=== PATIENT | male | born 1990 | race Caucasian/White ===

== ENCOUNTER 2016-12-01 15:20 | Emergency (ER) | payer OTHER ==
[~2016-12-01] VITALS: Ht 182.9 cm; Wt 106.8 kg
--- NOTE | 2016-12-01 16:35 | REP ---
CT Head without contrast HISTORY: Trauma COMPARISON: None There is no intraparenchymal hemorrhage, acute infarct, mass or midline shift. The ventricular system is normal in appearance. There is no extra cerebral collection. There is no fracture. There is sclerosis of the right mastoid. Mucosal thickening is present in the right middle ear cavity and mastoid air cells. The left mastoid air cells and the visualized sinuses are clear. IMPRESSION: Impression 1. There is no acute intracranial lesion. 2. There is mucosal thickening in the right middle ear cavity and mastoid air cells with associated sclerosis. This is secondary to chronic inflammatory disease. Signed by Michael Sanches MD 12/01/2016 04:27 P
[2016-12-01 16:54] VITALS: BP 144/83
== END 2016-12-01 18:23 | disposition home or self-care (01) ==
LOC: M ED 15:20
DX: S09.90XA Unspecified injury of head, initial encounter (principal); W22.8XXA Striking against or struck by other objects, initial encounter; Y92.9 Unspecified place or not applicable; Y93.9 Activity, unspecified; Y99.9 Unspecified external cause status